=== PATIENT | male | born 1960 | race American Indian/Alaskan Native ===

== ENCOUNTER 2019-12-03 23:17 | Emergency (ER) | payer OTHER ==
[2019-12-03] MEDS ORDERED: MECLIZINE 25 MG TAB PO ONE (23:43)
[2019-12-04 00:02] LABS: Hematocrit 41.2 % (35.5-45.6); Hemoglobin 13.6 gm/dl (11.8-15.2); Mean Corpuscular HGB Conc 33 % (32-34); Mean Corpuscular Volume 73 fl (84-94); Platelet Count 105 K/mm3 (140-440); Red Cell Distribution Width 16.9 % (13.2-15.2)
[2019-12-04 00:20] LABS: BUN/Creatinine Ratio 21; Blood Urea Nitrogen 15 mg/dL (9-20); Calcium 9.5 mg/dL (8.4-10.2); Hemolysis Index 5
[2019-12-04 00:25] LABS: Bilirubin,Urine NEG (Negative); Blood,Urine NEG (Negative); Color,Urine Yellow (Yellow); Protein,Urine <15 mg/dL mg/dL (Negative); Urobilinogen,Urine < 2.0 mg/dL (<2.0)
--- NOTE | 2019-12-04 01:12 | Cat Scan Report ---
CT head/brain wo con INDICATION / CLINICAL INFORMATION: dizziness/HTN. TECHNIQUE: Axial CT imaging of the brain was obtained without contrast. Coronal and sagittal reformatted imaging obtained and reviewed. All CT scans at this location are performed using CT dose reduction for ALAR A by means of automated exposure control. COMPARISON: None available. FINDINGS: No intracranial hemorrhage, mass, or midline shift. No extra-axial fluid collections or suggestion fo r acute CVA. Ventricular system and basilar cisterns are unremarkable. Mild cerebral/cerebellar atrop hy. Visualized paranasal sinuses are well aerated and grossly clear. The frontal sinuses were never pneum atized. No calvarial abnormality. IMPRESSION: 1. No acute intracranial abnormality. Signer Name: Luisa Amezquita MD Signed: 12/04/2019 1:07 AM Workstation Name: [id number]
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
[2019-12-04 01:41] VITALS: BP 184/92
[2019-12-04 03:53] LABS: Band Neutrophils # (Manual) 0.1 K/mm3; Total Cells Counted 100
[2019-12-04 03:54] LABS: Anisocytosis Few; Hypochromasia 1+; Target Cells Few
[2019-12-04 03:55] LABS: Platelet Estimate Consistent w Auto
== END 2019-12-04 01:50 | disposition home or self-care (01) ==
LOC: ED 23:17
DX: R42 Dizziness and giddiness (principal); I10 Essential (primary) hypertension
CPT/HCPCS: 36415; 70450; 80048; 81001; 85007; 85025; 93005